=== PATIENT | female | born 1955 | race Caucasian/White ===

== ENCOUNTER 2016-09-22 09:26 | Emergency (ER) | payer OTHER ==
[2016-09-22 09:32] VITALS: BP 181/81; PULSE 84; TEMP 97.6; BMI 26.1
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
--- NOTE | 2016-09-22 10:02 | DIRPT ---
CLINICAL DATA: Three-week history of pain EXAM: RIGHT SHOULDER - 2+ VIEW COMPARISON: None. FINDINGS: Frontal, Y scapular, and axillary images obtained. There is no acute fracture or dislocation. There is mild bony overgrowth at the acromioclavicular joint. There is slight narrowing of the glenohumeral joint. No erosive change or intra-articular calcification. 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 No fracture or dislocation. Electronically Signed By: Bernardino Paulino III, M.D. On: 09/22/2016 09:59
== END 2016-09-22 10:15 | disposition home or self-care (01) ==
LOC: ED 09:26
DX: M25.511 Pain in right shoulder (principal)
CPT/HCPCS: 99282

== ENCOUNTER 2016-10-08 08:47 | Emergency (ER) | payer OTHER ==
[2016-10-08 09:39] VITALS: TEMP 98.2; BMI 26.4
[2016-10-08] MEDS ORDERED: IBUPROFEN 800 MG TAB PO ONE (11:34)
[2016-10-08] MEDS ORDERED: CYCLOBENZAPRINE 10 MG TAB PO ONE (11:34)
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
[2016-10-08 12:58] VITALS: BP 175/80; PULSE 85
== END 2016-10-08 12:38 | disposition home or self-care (01) ==
LOC: EDMC 08:47
DX: M54.5 Low back pain (principal); S66.912A Strain of unspecified muscle, fascia and tendon at wrist and hand level, left hand, initial encounter; V49.3XXA Car occupant (driver) (passenger) injured in unspecified nontraffic accident, initial encounter; Y93.9 Activity, unspecified; Y92.410 Unspecified street and highway as the place of occurrence of the external cause
CPT/HCPCS: 72110; 73130; 99283; A9270; J3490